=== PATIENT | female | born 1995 | race Two or more races ===

== ENCOUNTER 2023-05-04 17:47 | Emergency (ER) | payer OTHER, MEDICAID ==
[~2023-05-04] VITALS: Ht 157.5 cm; Wt 60.0 kg
[2023-05-04 19:19] VITALS: BP 114/87; PULSE 89; RESP 16; TEMP 98.1; O2SAT 99
[2023-05-04] MEDS ORDERED: HYDROcodone-ACET 5/325MG TAB PO ONE (19:30)
[2023-05-04] MEDS ORDERED: HYDR-4902 PO ×2 (21:05→21:10)
== END 2023-05-04 22:31 | disposition home or self-care (01) ==
LOC: ER 17:47
DX: S62.645 Nondisplaced fracture of proximal phalanx of left ring finger (principal); Z79.1 Long term (current) use of non-steroidal anti-inflammatories (NSAID); X58.XXXD Exposure to other specified factors, subsequent encounter
CPT/HCPCS: 29130; 73140